=== PATIENT | female | born 1945 | race Caucasian/White ===

== ENCOUNTER 2016-04-30 06:28 | Day surgery (SDC) | payer MEDICARE, OTHER ==
[~2016-04-30] VITALS: Ht 162.6 cm; Wt 74.8 kg
== END 2016-04-30 10:12 | disposition home or self-care (01) ==
LOC: RAD.S 06:28 → EDSTATUS 08:00 → RAD.S 10:12
DX: M48.56XA Collapsed vertebra, not elsewhere classified, lumbar region, initial encounter for fracture (principal); Z79.899 Other long term (current) drug therapy; Z79.82 Long term (current) use of aspirin; Z79.52 Long term (current) use of systemic steroids

== ENCOUNTER → 2016-05-17 | Outpatient (CLI) | payer MEDICARE, OTHER | END | disposition home or self-care (01) | LOC: RAD.S 06:49 | DX: M54.5 Low back pain (principal); M48.06 Spinal stenosis, lumbar region; Z98.890 Other specified postprocedural states; Z98.1 Arthrodesis status ==

== ENCOUNTER 2016-05-24 06:25 | Day surgery (SDC) | payer MEDICARE, OTHER ==
[~2016-05-24] VITALS: Ht 162.6 cm; Wt 74.5 kg
== END 2016-05-24 11:14 | disposition home or self-care (01) ==
LOC: RAD.S 06:25 → EDSTATUS 08:00 → RAD.S 11:14
PROC: 0QU03JZ Supplement Lumbar Vertebra with Synthetic Substitute, Percutaneous Approach (ICD-10-PCS; principal; 2016-05-24)
PROC: 0QS03ZZ Reposition Lumbar Vertebra, Percutaneous Approach (ICD-10-PCS; principal; 2016-05-24)
DX: M48.56XA Collapsed vertebra, not elsewhere classified, lumbar region, initial encounter for fracture (principal); M06.9 Rheumatoid arthritis, unspecified; M48.00 Spinal stenosis, site unspecified; Z98.1 Arthrodesis status; Z79.899 Other long term (current) drug therapy; Z79.52 Long term (current) use of systemic steroids; Z79.82 Long term (current) use of aspirin